=== PATIENT | male | born 1965 | race African-American/Black ===

== ENCOUNTER 2017-09-20 17:46 | Emergency (ER) | payer OTHER ==
[2017-09-20] MEDS ORDERED: Amoxicillin/Potassium Clav 875 MG TAB ONE (18:03)
== END 2017-09-20 18:08 | disposition home or self-care (01) ==
LOC: MADERS 17:46
DX: L73.9 Follicular disorder, unspecified (principal)
CPT/HCPCS: 99283

== ENCOUNTER 2018-06-13 11:35 | Emergency (ER) | payer OTHER, SELFPAY ==
[2018-06-13] MEDS ORDERED: HYDROcodone/Acetaminophen 5/325 mg Tablet ONE (12:36)
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
== END 2018-06-13 13:22 | disposition home or self-care (01) ==
LOC: MADERS 11:35
DX: S39.012A Strain of muscle, fascia and tendon of lower back, initial encounter (principal); E11.9 Type 2 diabetes mellitus without complications; E78.5 Hyperlipidemia, unspecified; Z79.899 Other long term (current) drug therapy; Z79.84 Long term (current) use of oral hypoglycemic drugs; V59.9XXA Occupant (driver) (passenger) of pick-up truck or van injured in unspecified traffic accident, initial encounter
CPT/HCPCS: 71046; 72100; 72170

== ENCOUNTER 2018-08-02 17:50 | Emergency (ER) | payer OTHER ==
[2018-08-02] MEDS ORDERED: Fluconazole 100 MG TAB ONE (18:22)
== END 2018-08-02 18:29 | disposition home or self-care (01) ==
LOC: MADERS 17:50
DX: N47.7 Other inflammatory diseases of prepuce (principal); B37.42 Candidal balanitis; E11.9 Type 2 diabetes mellitus without complications; E78.5 Hyperlipidemia, unspecified; Z79.84 Long term (current) use of oral hypoglycemic drugs; Z79.899 Other long term (current) drug therapy
CPT/HCPCS: 99282

== ENCOUNTER 2018-10-16 22:59 | Emergency (ER) | payer OTHER, SELFPAY ==
[2018-10-16 23:34] LABS: Bilirubin Negative (Negative); Blood, Urine Negative (Negative); Clarity Clear (Clear); Glucose, Urine (Dipstick) >=1000 mg/dL (Negative); Leukocyte Negative (Negative); Nitrite Negative (Negative); Protein, Urine (Dipstick) Negative (Neg-Trace); Urobilinogen 0.2 mg/dL (Less than 2)
[2018-10-16] MEDS ORDERED: Fluconazole 100 MG TAB ONE (23:41)
== END 2018-10-16 23:44 | disposition home or self-care (01) ==
LOC: MADERS 22:59
DX: B37.42 Candidal balanitis (principal); E11.9 Type 2 diabetes mellitus without complications; E78.5 Hyperlipidemia, unspecified; Z79.899 Other long term (current) drug therapy; Z79.4 Long term (current) use of insulin
CPT/HCPCS: 81003; 99283

== ENCOUNTER 2018-12-04 18:52 | Emergency (ER) | payer SELFPAY ==
[2018-12-04] MEDS ORDERED: Cephalexin 500 MG CAP ONE (19:21)
== END 2018-12-04 19:25 | disposition home or self-care (01) ==
LOC: MADERS 18:52
DX: S61.412A Laceration without foreign body of left hand, initial encounter (principal); S71.009A Unspecified open wound, unspecified hip, initial encounter; L03.114 Cellulitis of left upper limb; E11.9 Type 2 diabetes mellitus without complications; E78.5 Hyperlipidemia, unspecified; Z79.84 Long term (current) use of oral hypoglycemic drugs; Z79.899 Other long term (current) drug therapy; W45.8XXA Other foreign body or object entering through skin, initial encounter
CPT/HCPCS: 99283

== ENCOUNTER 2019-12-15 08:52 | Emergency (ER) | payer OTHER ==
[2019-12-15] MEDS ORDERED: Acetaminophen 500 MG TAB ONE (09:17)
[2019-12-15] MEDS ORDERED: predniSONE 20 MG TAB ONE (09:17)
[2019-12-15] MEDS ORDERED: Ketorolac Tromethamine 30 MG/ML VIAL ONE (09:17)
[2019-12-15] MEDS ORDERED: Diazepam 5 MG TAB ONE (09:17)
== END 2019-12-15 10:43 | disposition home or self-care (01) ==
LOC: MADERS 08:52
DX: M54.5 Low back pain (principal); E11.9 Type 2 diabetes mellitus without complications; E78.5 Hyperlipidemia, unspecified; Z79.84 Long term (current) use of oral hypoglycemic drugs; Z79.899 Other long term (current) drug therapy
CPT/HCPCS: 96372; 99283; J1885; J7512

== ENCOUNTER 2019-12-23 10:58 | Outpatient (CLI) | payer OTHER ==
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
== END 2019-12-23 10:59 | disposition home or self-care (01) ==
LOC: MADRAD 10:58
PROVIDERS: ATTEND Family Medicine
DX: M25.552 Pain in left hip (principal)

== ENCOUNTER 2019-12-24 12:38 | Emergency (ER) | payer OTHER ==
[2019-12-24] MEDS ORDERED: predniSONE 20 MG TAB ONE (13:27)
[2019-12-24] MEDS ORDERED: Ketorolac Tromethamine 30 MG/ML VIAL ONE (13:27)
[2019-12-24] MEDS ORDERED: Diazepam 10 MG/2 ML SYRINGE ONE (13:27)
[2019-12-24 13:32] LABS: Bilirubin Negative (Negative); Blood, Urine Negative (Negative); Clarity Clear (Clear); Glucose, Urine (Dipstick) 500 mg/dL (Negative); Ketone, Urine Negative (Negative); Leukocyte Negative (Negative); Nitrite Negative (Negative); Protein, Urine (Dipstick) Negative (Neg-Trace); Urobilinogen 0.2 mg/dL (Less than 2)
== END 2019-12-24 14:35 | disposition home or self-care (01) ==
LOC: MADERS 12:38
DX: M54.42 Lumbago with sciatica, left side (principal); E11.9 Type 2 diabetes mellitus without complications; E78.5 Hyperlipidemia, unspecified; Z79.84 Long term (current) use of oral hypoglycemic drugs; Z79.899 Other long term (current) drug therapy
CPT/HCPCS: 81003; 96374; 96375; J1885; J3360; J7512

== ENCOUNTER 2020-07-06 12:55 | Emergency (ER) | payer BC ==
[2020-07-06] MEDS ORDERED: Fluconazole 100 MG TAB ONE (13:50)
== END 2020-07-06 14:30 | disposition home or self-care (01) ==
LOC: MADERS 12:55
DX: B37.49 Other urogenital candidiasis (principal); S30.812A Abrasion of penis, initial encounter; E78.5 Hyperlipidemia, unspecified; E11.9 Type 2 diabetes mellitus without complications; X58.XXXA Exposure to other specified factors, initial encounter
CPT/HCPCS: 99282

== ENCOUNTER 2020-11-07 08:51 | Emergency (ER) | payer BC ==
[2020-11-07] MEDS ORDERED: Insulin Regular 300 UNITS/3 ML VIAL ONE (09:56)
== END 2020-11-07 10:24 | disposition home or self-care (01) ==
LOC: MADERS 08:51
DX: E11.65 Type 2 diabetes mellitus with hyperglycemia (principal); B37.42 Candidal balanitis; R11.2 Nausea with vomiting, unspecified; E78.5 Hyperlipidemia, unspecified; Z79.4 Long term (current) use of insulin
CPT/HCPCS: 36416; 99284; J1815

== ENCOUNTER 2022-03-05 03:55 | Emergency (ER) | payer BC ==
[2022-03-05] MEDS ORDERED: Ibuprofen 800 MG TAB ONE (04:24)
== END 2022-03-05 05:00 | disposition home or self-care (01) ==
LOC: MADERS 03:55
DX: R07.89 Other chest pain (principal); J06.9 Acute upper respiratory infection, unspecified; E11.9 Type 2 diabetes mellitus without complications; E78.00 Pure hypercholesterolemia, unspecified; Z79.4 Long term (current) use of insulin
CPT/HCPCS: 87804; 93005

== ENCOUNTER 2022-10-25 10:39 | Emergency (ER) | payer BC ==
[2022-10-25] MEDS ORDERED: Ketorolac Tromethamine 60 MG/2 ML VIAL ONE (11:35)
== END 2022-10-25 11:59 | disposition home or self-care (01) ==
LOC: MADERS 10:39
DX: K40.90 Unilateral inguinal hernia, without obstruction or gangrene, not specified as recurrent (principal); E11.9 Type 2 diabetes mellitus without complications; E78.00 Pure hypercholesterolemia, unspecified; Z79.4 Long term (current) use of insulin; Z79.899 Other long term (current) drug therapy
CPT/HCPCS: 96372; 99284; J1885

== ENCOUNTER 2023-06-10 00:18 | Emergency (ER) | payer BC ==
[2023-06-10] MEDS ORDERED: HYDROcodone/Acetaminophen 10/325 mg Tablet ONE (00:50)
[2023-06-10] MEDS ORDERED: Ibuprofen 800 MG TAB ONE (00:50)
== END 2023-06-10 01:00 | disposition home or self-care (01) ==
LOC: MADERS 00:18
DX: M79.661 Pain in right lower leg (principal); E11.9 Type 2 diabetes mellitus without complications; Z79.4 Long term (current) use of insulin
CPT/HCPCS: 99283

== ENCOUNTER 2023-08-06 18:45 | Emergency (ER) | payer BC, OTHER ==
[2023-08-06] MEDS ORDERED: Ketorolac Tromethamine 30 MG (1 mL) VIAL ONE (19:24)
== END 2023-08-06 20:35 | disposition home or self-care (01) ==
LOC: MADERS 18:45
DX: S39.012A Strain of muscle, fascia and tendon of lower back, initial encounter (principal); E11.9 Type 2 diabetes mellitus without complications; E78.5 Hyperlipidemia, unspecified; Z79.4 Long term (current) use of insulin; Z79.899 Other long term (current) drug therapy; V43.52XA Car driver injured in collision with other type car in traffic accident, initial encounter
CPT/HCPCS: 72100; 96372; J1885

== ENCOUNTER 2024-11-03 07:38 | Emergency (ER) | payer BC ==
[2024-11-03] MEDS ORDERED: Ondansetron PF 4 MG/2 ML Vial ONE (08:30)
[2024-11-03 08:41] LABS: #Basophils 0.0 thou/uL (0.0-0.2); #Eosinophils 0.1 thou/uL (0.0-0.7); #Lymphocytes 0.5 thou/uL (1.20-3.40); #Monocytes 0.5 thou/uL (0.11-0.59); #Neutrophils 7.0 thou/uL (1.40-6.50); %Basophils 0.6 % (0.0-1.0); %Eosinophils 1.5 % (0.0-10.0); %Lymphocytes 5.7 % (21.0-51.0); %Monocytes 5.8 % (0.0-10.0); %Neutrophils 86.4 % (42.0-75.0); Hematocrit 44.0 % (42.0-52.0); Hemoglobin 13.9 g/dL (14.0-18.0); Mean Corpuscular Hemoglobin 24.8 pg (27.0-31.0); Mean Corpuscular Volume 78.4 fl (78.0-98.0); Platelet Count 178 10x3/uL (130-400); Red Blood Cell (RBC) Count 5.62 mill/uL (4.70-6.10); White Blood Cell (WBC) Count 8.1 10x3/uL (4.8-10.8)
[2024-11-03 08:48] LABS: Platelet Adequacy Comment Appears Adequate
[2024-11-03 08:53] LABS: ALT (SGPT) 14 U/L (Less than 45); AST (SGOT) 11 U/L (11-34); Albumin 3.9 g/dL (3.1-4.5); Alkaline Phosphatase 60 U/L (40-110); Anion Gap 18 mmol/L (10-20); BUN (Urea Nitrogen) 23 mg/dL (8.4-25.7); Bilirubin, Total 0.5 mg/dL (0.3-1.2); Calc. Creatinine Clearance 0 mL/min (70-130); Calcium 9.1 mg/dL (7.8-10.44); Carbon Dioxide 24 mmol/L (22-29); Chloride 100 mmol/L (98-107); Globulin 3.0 g/dL (2.4-3.5); Lipase 7 U/L (8-78); Magnesium 1.6 mg/dL (1.6-2.6); Potassium 4.4 mmol/L (3.5-5.1); Sodium 138 mmol/L (136-145)
[2024-11-03 09:17] LABS: Glucose 500 mg/dL (70-105)
[2024-11-03 09:19] LABS: Critical Call Chemistry CALLED @NUR.BP2@915
== END 2024-11-03 10:23 | disposition home or self-care (01) ==
LOC: MADERS 07:38
DX: E86.0 Dehydration (principal); R11.2 Nausea with vomiting, unspecified; E11.65 Type 2 diabetes mellitus with hyperglycemia
CPT/HCPCS: 36416; 80053; 83690; 83735; 85025; 96361; 96374; J2405; J7030; Q0162